=== PATIENT | male | born 1995 | race African-American/Black ===

== ENCOUNTER 2018-11-10 18:52 | Observation (INO) | payer OTHER, BC ==
[2018-11-10] MEDS ORDERED: KETOROLAC 30 MG/ML 1 ML VIAL IVP STA (19:57)
[2018-11-10] MEDS ORDERED: SODIUM CHLORIDE 0.9% 1,000 ML IV STA ×2 (19:57→23:05)
[2018-11-10] MEDS ORDERED: LORazepam 2 MG/ML INJ IV STA (19:57)
[2018-11-10 20:16] LABS: Basophils % (A) 0 %; Eosinophils % (A) 0 %; HCT 48.2 % (39.0-53.0); HGB 16.7 gm/dL (13.0-17.5); Lymphocytes % (A) 8 %; MCH 30.7 pg (25.0-35.0); MCHC 34.7 g/dL (31.0-37.0); MCV 88.6 fL (80.0-100.0); Mean Platelet Volume 6.1; Monocytes # (A) 0.5 k/uL (0-1.0); Monocytes % (A) 4 %; Neutrophils # (A) 11.1 k/uL (1.3-7.7); Neutrophils % (A) 87 %; Platelet Count 357 k/uL (150-450); RBC 5.44 m/uL (4.30-5.90); WBC 12.8 k/uL (3.8-10.6)
[2018-11-10 20:25] LABS: ALT 40 U/L (21-72); AST 48 U/L (17-59); Albumin 5.6 g/dL (3.5-5.0); Alkaline Phosphatase 61 U/L (38-126); Amylase 129 U/L (30-110); Anion Gap 16 mmol/L; Blood Urea Nitrogen 23 mg/dL (9-20); Calcium 10.8 mg/dL (8.4-10.2); Carbon Dioxide 23 mmol/L (22-30); Chloride 105 mmol/L (98-107); Glucose 106 mg/dL (74-99); Lipase 57 U/L (23-300); Potassium 4.2 mmol/L (3.5-5.1); Sodium 144 mmol/L (137-145); Total Bilirubin 1.2 mg/dL (0.2-1.3); Total Protein 8.7 g/dL (6.3-8.2)
--- NOTE | 2018-11-10 20:44 | CT ---
EXAMINATION TYPE: CT abdomen pelvis w con DATE OF EXAM: 11/10/2018 COMPARISON: None HISTORY: abdominal pain CT DLP: 440.5 mGycm Automated exposure control for dose reduction was used. TECHNIQUE: Helical acquisition of images was performed from the lung bases through the pelvis. CONTRAST: Performed without Oral Contrast and with IV Contrast, patient injected with 100 mL of Isovue 370. FINDINGS: Lung bases are clear. There is no pleural effusion. Heart size is normal. Liver spleen pancreas gallbladder appear normal. Bile ducts are not dilated. There is no adrenal mass. Kidneys show satisfactory contrast opacification. There is no hydronephrosi s. Ureters are not dilated. Bladder distends smoothly. There are a few prostatic calcifications. Ther e is no inguinal hernia. There is no free fluid in the pelvis. There is no sign of a bowel obstructio n. There is no sign of free air. There is no ascites. There is no mesenteric edema. The lumbar spine is intact. Bony pelvis is intact. Appendix is not seen. There is no sign of a thickened appendix. IMPRESSION: NEGATIVE CT SCAN OF THE ABDOMEN AND PELVIS. NO RENAL STONE OR OBSTRUCTION. NO SIGN OF APPENDICITIS.
[2018-11-10 21:24] LABS: Appearance,Urine Clear (Clear); Bilirubin,Urine Negative (Negative); Blood,Urine Negative (Negative); Color,Urine Yellow; Glucose,Urine (UA) Negative (Negative); Ketones,Urine 4+ (Negative); Leukocyte Esterase,Urine Negative (Negative); Nitrite,Urine Negative (Negative); PH, Urine 7.5 (5.0-8.0); Protein,Urine Trace (Negative); Urobilinogen,Urine <2.0 mg/dL (<2.0)
[2018-11-10 21:43] LABS: Specific Gravity,Urine >1.050 (1.001-1.035)
--- NOTE | 2018-11-10 22:06 | ED ---
General Adult HPI - General Source: patient Mode of arrival: ambulatory Limitations: no limitations <Agapito Jean - Last Filed: 11/10/18 22:04> - General Source: patient, RN notes reviewed Limitations: no limitations <Jax Mistry - Last Filed: 11/10/18 23:09> - General Chief complaint: Abdominal Pain Stated complaint: abdominal pain, vomiting Time Seen by Provider: 11/10/18 19:23 - History of Present Illness Initial comments: 22-year-old male presents to the emergency department for a chief complaint of vomiting 12 hours. Patient states he woke up this morning and has vomited about 20 times since. He states his significant generalized abdominal pain as well that he describes as a sharp cramping pain. Patient denies diarrhea. He states he was at a bowel movement yesterday. Patient denies any surgical history. He does admit that he was drinking alcohol last night but did not think he drink enough to cause this pain or vomiting. Patient has no other complaints at this time including shortness of breath, chest pain, headache, or visual changes. (Jax Mistry) - Related Data Home Medications Medication Instructions Recorded Confirmed No Known Home Medications 11/10/18 11/10/18 Allergies Allergy/AdvReac Type Severity Reaction Status Date / Time No Known Allergies Allergy Verified 11/10/18 19:36 Review of Systems ROS Other: All systems not noted in ROS Statement are negative. <Agapito Jean - Last Filed: 11/10/18 22:04> ROS Other: All systems not noted in ROS Statement are negative. <Jax Mistry - Last Filed: 11/10/18 23:09> ROS Statement: Those systems with pertinent positive or pertinent negative responses have been documented in the HPI. Past Medical History Past Medical History: No Reported History History of Any Multi-Drug Resistant Organisms: None Reported Past Surgical History: No Surgical Hx Reported Past Psychological History: No Psychological Hx Reported, Anxiety, Bipolar, Depression, PTSD Smoking Status: Current every day smoker Past Alcohol Use History: Occasional Past Drug Use History: Marijuana <Agapito Jean - Last Filed: 11/10/18 22:04> General Exam Limitations: no limitations <Agapito Jean - Last Filed: 11/10/18 22:04> Limitations: no limitations General appearance: in distress (Patient does appear in pain) Head exam: Present: atraumatic, normocephalic, normal inspection Eye exam: Present: normal appearance, PERRL, EOMI. Absent: scleral icterus, conjunctival injection, periorbital swelling ENT exam: Present: normal exam, mucous membranes moist Neck exam: Present: normal inspection, full ROM. Absent: tenderness, meningismus, lymphadenopathy Respiratory exam: Present: normal lung sounds bilaterally. Absent: respiratory distress, wheezes, rales, rhonchi, stridor Cardiovascular Exam: Present: regular rate, normal rhythm, normal heart sounds. Absent: systolic murmur, diastolic murmur, rubs, gallop, clicks GI/Abdominal exam: Present: tenderness, normal bowel sounds. Absent: soft ( voluntary guarding noted), distended, guarding, rebound Neurological exam: Present: alert, oriented X3, CN II-XII intact <Jax Mistry P - Last Filed: 11/10/18 23:09> Vital Signs 11/10/18 11/10/18 11/10/18 18:57 21:11 21:59 Temperature 97.9 F Pulse Rate 81 79 58 L Respiratory 22 16 16 Rate Blood Pressure 134/79 88/54 112/62 O2 Sat by Pulse 96 100 100 Oximetry Medical Decision Making - Lab Data Result diagrams: 11/10/18 20:03 11/10/18 20:03 <Agapito Jean - Last Filed: 11/10/18 22:04> - Lab Data Result diagrams: 11/10/18 20:03 11/10/18 20:03 <Jax Mistry - Last Filed: 11/10/18 23:09> - Medical Decision Making Medical decision making; this is a 22-year-old male who presents emergency room with abdominal pain. Started this morning. Patient reports a came on rather suddenly. He does admit having had a lot of alcohol last night. The patient's examination found the abdomen to be tender with voluntary guarding. The patient 's white count 12.5 hemoglobin amylase 126 lipase normal. CAT scan was done and reviewed by radiologist as no acute findings could be found by the radiologist stated he was unable to see the appendix but there was not any evidence of any localized inflammatory markers in that general area per radiology. I examine the patient is mildly tender with voluntary guarding. He has vomited several times bilious material. Patient will be hydrated. I discussed the case with on-call general surgeon Dr. Edwards. He'll see the patient in hospital. I discussed the case with milagro on-call for Dr. Mendez. Dr. Jean (Agapito Jean) 22-year-old male presents for abdominal pain with nausea and vomiting 12 hours. On exam patient does have abdomen with voluntary guarding noted as well as tenderness that is generalized throughout the abdomen. CBC unremarkable, patient does have a mild white count of 12 which is likely reactive. Amylase slightly elevated at 129. Patient does have 4+ ketones in the urine with a BUN of 23, given 2 L of fluids. Patient given Toradol, feeling much better at this time. Patient asking for food, patient was given juice. After few minutes patient vomited up juice and had recurrence of pain. Failed by mouth trial. Due to tenderness of abdomen CT was ordered which was negative for acute process. At this time given patient's elevated amylase as well as evidence of dehydration he will be admitted for intractable nausea and vomiting as well as abdominal pain possibly related to a very mild pancreatitis. (Jax Mistry) - Lab Data Lab Results 11/10/18 11/10/18 11/10/18 Range/Units 20:03 20:03 20:13 WBC 12.8 H (3.8-10.6) k/uL RBC 5.44 (4.30-5.90) m/uL Hgb 16.7 (13.0-17.5) gm/dL Hct 48.2 (39.0-53.0) % MCV 88.6 (80.0-100.0) fL MCH 30.7 (25.0-35.0) pg MCHC 34.7 (31.0-37.0) g/dL RDW 12.0 (11.5-15.5) % Plt Count 357 (150-450) k/uL Neutrophils % 87 % Lymphocytes % 8 % Monocytes % 4 % Eosinophils % 0 % Basophils % 0 % Neutrophils # 11.1 H (1.3-7.7) k/uL Lymphocytes # 1.0 (1.0-4.8) k/uL Monocytes # 0.5 (0-1.0) k/uL Eosinophils # 0.0 (0-0.7) k/uL Basophils # 0.0 (0-0.2) k/uL Sodium 144 (137-145) mmol/L Potassium 4.2 (3.5-5.1) mmol/L Chloride 105 (98-107) mmol/L Carbon Dioxide 23 (22-30) mmol/L Anion Gap 16 mmol/L BUN 23 H (9-20) mg/dL Creatinine 0.81 (0.66-1.25) mg/dL Est GFR (CKD-EPI)AfAm >90 (>60 ml/min/1.73 sqM) Est GFR (CKD-EPI)NonAf >90 (>60 ml/min/1.73 sqM) Glucose 106 H (74-99) mg/dL Calcium 10.8 H (8.4-10.2) mg/dL Total Bilirubin 1.2 (0.2-1.3) mg/dL AST 48 (17-59) U/L ALT 40 (21-72) U/L Alkaline Phosphatase 61 (38-126) U/L Total Protein 8.7 H (6.3-8.2) g/dL Albumin 5.6 H (3.5-5.0) g/dL Amylase 129 H (30-110) U/L Lipase 57 (23-300) U/L Urine Color Urine Appearance (Clear) Urine pH (5.0-8.0) Ur Specific [place] (1.001-1.035) Urine Protein (Negative) Urine Glucose (UA) (Negative) Urine Ketones (Negative) Urine Blood (Negative) Urine Nitrite (Negative) Urine Bilirubin (Negative) Urine Urobilinogen (<2.0) mg/dL Ur Leukocyte Esterase (Negative) Influenza Type A RNA Not Detected (Not Detectd) Influenza Type B (PCR) Not Detected (Not Detectd) 11/10/18 Range/Units 21:13 WBC (3.8-10.6) k/uL RBC (4.30-5.90) m/uL Hgb (13.0-17.5) gm/dL Hct (39.0-53.0) % MCV (80.0-100.0) fL MCH (25.0-35.0) pg MCHC (31.0-37.0) g/dL RDW (11.5-15.5) % Plt Count (150-450) k/uL Neutrophils % % Lymphocytes % % Monocytes % % Eosinophils % % Basophils % % Neutrophils # (1.3-7.7) k/uL Lymphocytes # (1.0-4.8) k/uL Monocytes # (0-1.0) k/uL Eosinophils # (0-0.7) k/uL Basophils # (0-0.2) k/uL Sodium (137-145) mmol/L Potassium (3.5-5.1) mmol/L Chloride (98-107) mmol/L Carbon Dioxide (22-30) mmol/L Anion Gap mmol/L BUN (9-20) mg/dL Creatinine (0.66-1.25) mg/dL Est GFR (CKD-EPI)AfAm (>60 ml/min/1.73 sqM) Est GFR (CKD-EPI)NonAf (>60 ml/min/1.73 sqM) Glucose (74-99) mg/dL Calcium (8.4-10.2) mg/dL Total Bilirubin (0.2-1.3) mg/dL AST (17-59) U/L ALT (21-72) U/L Alkaline Phosphatase (38-126) U/L Total Protein (6.3-8.2) g/dL Albumin (3.5-5.0) g/dL Amylase (30-110) U/L Lipase (23-300) U/L Urine Color Yellow Urine Appearance Clear (Clear) Urine pH 7.5 (5.0-8.0) Ur Specific [place] >1.050 H (1.001-1.035) Urine Protein Trace H (Negative) Urine Glucose (UA) Negative (Negative) Urine Ketones 4+ H (Negative) Urine Blood Negative (Negative) Urine Nitrite Negative (Negative) Urine Bilirubin Negative (Negative) Urine Urobilinogen <2.0 (<2.0) mg/dL Ur Leukocyte Esterase Negative (Negative) Influenza Type A RNA (Not Detectd) Influenza Type B (PCR) (Not Detectd) Disposition <Agapito Jean - Last Filed: 11/10/18 22:04> Is patient prescribed a controlled substance at d/c from ED?: No Time of Disposition: 22:29 <Jax Mistry - Last Filed: 11/10/18 23:09> Clinical Impression: Pancreatitis, Intractable nausea and vomiting, Abdominal pain Disposition: ADMITTED IP TO THIS HOSP Condition: Fair
[2018-11-10] MEDS ORDERED: KETOROLAC 30 MG/ML 1 ML VIAL IVP PRN (22:25)
[2018-11-10] MEDS ORDERED: MORPHINE SULFATE 4 MG/ML SYRINGE IV PRN (22:25)
[2018-11-10] MEDS ORDERED: NALOXONE 0.4 MG/ML 1 ML VIAL IV PRN (22:25)
[2018-11-10] MEDS ORDERED: ONDANSETRON 4 MG/2 ML VIAL IVP PRN (22:25)
[2018-11-10] MEDS ORDERED: METOCLOPRAMIDE 5 MG/ML 2 ML VIAL IVP STA (23:28)
[2018-11-11] MEDS: SODIUM CHLORIDE 0.9% 1,000 ML IV SCH ×2 (00:25→04:46)
[2018-11-11 15:26] VITALS: BP 102/64; PULSE 79; RESP 18; TEMP 98.4
--- NOTE | 2018-11-11 15:32 | P.HPIM ---
History of Present Illness This is a pleasant 22 years old male with no significant past medical history presents with persistent nausea vomiting. Patient has 3 drinks of fourth 2 beers with his friends couple nights ago, and since yesterday he has repeated nausea vomiting several times about 10-15 times, she presents with severe abdominal pain came in the lower abdomen, as sharp and crampy. However today patient got some fluids, and pain medication and today he feels better with no more nausea vomiting. The abdominal pain has subsided. However patient hasn't been trying to eat or drink anything since morning. We will advance the diet and see how is doing Patient's vitals are stable, he has mild leukocytosis., Liver enzymes were within normal limits. Influenza B was checked was negative. Urine analysis is negative for infection however it looks concentrated with ketones positive. He has CT of the abdomen and pelvis with contrast showing no acute abnormalities. He was kept nothing by mouth, on IV fluids and pain management. 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 History of Any Multi-Drug Resistant Organisms: None Reported Past Surgical History: No Surgical Hx Reported Additional Past Surgical History / Comment(s): wisdom teeth removal Smoking Status: Current every day smoker - Past Family History Mother Family Medical History: No Reported History Father Family Medical History: No Reported History Medications and Allergies Home Medications Medication Instructions Recorded Confirmed Type No Known Home Medications 11/10/18 11/11/18 History Allergies Allergy/AdvReac Type Severity Reaction Status Date / Time No Known Allergies Allergy Verified 11/11/18 00:27 Physical Exam Vitals: Vital Signs Temp Pulse Pulse Resp BP BP Pulse Ox 11/11/18 08:00 98.5 F 76 16 104/51 98 11/11/18 03:12 16 11/11/18 00:55 16 11/11/18 00:46 98.8 F 102 H 16 108/58 99 11/10/18 23:51 78 18 111/96 99 11/10/18 21:59 58 L 16 112/62 100 11/10/18 21:11 79 16 88/54 100 11/10/18 18:57 97.9 F 81 22 134/79 96 Results CBC & Chem 7: 11/10/18 20:03 02/20/19 20:03 Labs: Abnormal Lab Results - Last 24 Hours (Table) 11/10/18 11/10/18 11/10/18 Range/Units 20:03 20:03 21:13 WBC 12.8 H (3.8-10.6) k/uL Neutrophils # 11.1 H (1.3-7.7) k/uL BUN 23 H (9-20) mg/dL Glucose 106 H (74-99) mg/dL Calcium 10.8 H (8.4-10.2) mg/dL Total Protein 8.7 H (6.3-8.2) g/dL Albumin 5.6 H (3.5-5.0) g/dL Amylase 129 H (30-110) U/L Ur Specific [place] >1.050 H (1.001-1.035) Urine Protein Trace H (Negative) Urine Ketones 4+ H (Negative) Assessment and Plan Assessment: Mostly patient has alcoholic gastroenteritis Dehydration Leukocytosis, mostly reactive Plan: This is a pleasant 22 years old male who presents with alcoholism and gastritis versus gastroenteritis. Patient nausea vomiting and dehydration are improving with IV fluid hydration, we'll continue the same and continue with pain management. We'll advance the diet to see how the patient will tolerated. Surgical team have been already consulted. DVT and GI prophylaxis. Further recommendations based on the clinical course of the patient.
--- NOTE | 2018-11-11 18:05 | P.DS ---
Providers Date of admission: 11/10/18 23:41 Attending physician: Michael Mendez Consults: 11/10/18 22:25 Consult Physician Stat Consulting Provider: Ray Troy Reason/Comments: pancreatitis, abdominal pain Do you want consulting provider notified?: Already Contacted Primary care physician: Stated None Hospital Course: This is a pleasant 22 years old male who comes with abdominal pain and nausea vomiting related to alcohol drinking of one-day duration. He was treated symptomatically with IV fluid normal saline and pain medication, and after his pain subsided his diet was advanced gradually he tolerated that well and he had bowel movement. Patient also has been evaluated by surgeon who cleared him for discharge. Patient symptoms resolved completely no more abdominal pain, no more nausea vomiting. He has normal bowel movements. Patient felt he can go home. Patient was found stable and can be discharged home however he needs follow-up as an outpatient. Patient was instructed to follow-up with his PCP in one week. He wasn't sure what was his PCP however he has [employer] insurance and he has his dad insurance, information is provided for the above the eye clinic as well as Dr. Guzmán otherwise patient states that he will find that with his family doctor in follow -up in one week Please refer to H&P from today for more details included physical exam. Time spent more than 35 minutes Patient Condition at Discharge: Fair Plan - Discharge Summary New Discharge Prescriptions: No Action No Known Home Medications Discharge Medication List No Known Home Medications 11/10/18 [History] Follow up Appointment(s)/Referral(s): Kaelyn Caldwell MD [REFERRING] - 1 Week None,Stated [Primary Care Provider] - 1-2 days [facility],Clinic [REFERRING] - 1 Week Activity/Diet/Wound Care/Special Instructions: regular diet activity as tolerated Discharge Disposition: HOME SELF-CARE
--- NOTE | 2018-11-11 18:18 | P.GSCN ---
History of Present Illness Consult date: 11/11/18 Reason for Consult: Abdominal pain History of present illness: The patient presents to the ER yesterday with a complaint of mid abdominal discomfort. He went on drinking with his friends on Thursday night. That evening he developed frequent vomiting. This persisted throughout yesterday morning and was associated with mid abdominal pain. No fevers. Normal bowel movement. No hematemesis or rectal bleeding. No melena. No history of similar events. Amylase was elevated on arrival. CAT scan was unimpressive however the patient has very little subcutaneous fat and the CAT scan was limited. Today the patient feels well. He is tolerating liquids at this time. He would like to go home. 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 History of Any Multi-Drug Resistant Organisms: None Reported Past Surgical History: No Surgical Hx Reported Additional Past Surgical History / Comment(s): wisdom teeth removal Smoking Status: Current every day smoker - Past Family History Mother Family Medical History: No Reported History Father Family Medical History: No Reported History Medications and Allergies Home Medications Medication Instructions Recorded Confirmed Type No Known Home Medications 11/10/18 11/11/18 History Allergies Allergy/AdvReac Type Severity Reaction Status Date / Time No Known Allergies Allergy Verified 11/11/18 00:27 Surgical - Exam Vital Signs Temp Pulse Resp BP Pulse Ox 97.9 F 81 22 134/79 96 11/10/18 18:57 11/10/18 18:57 11/10/18 18:57 11/10/18 18:57 11/10/18 18:57 Physical exam: General: Well-developed, well-nourished HEENT: Normocephalic, sclerae nonicteric Abdomen: Nontender, nondistended Extremities: No edema Neuro: Alert and oriented Results - Labs 11/10/18 20:03 11/10/18 20:03 Abnormal Lab Results - Last 24 Hours (Table) 11/10/18 11/10/18 11/10/18 Range/Units 20:03 20:03 21:13 WBC 12.8 H (3.8-10.6) k/uL Neutrophils # 11.1 H (1.3-7.7) k/uL BUN 23 H (9-20) mg/dL Glucose 106 H (74-99) mg/dL Calcium 10.8 H (8.4-10.2) mg/dL Total Protein 8.7 H (6.3-8.2) g/dL Albumin 5.6 H (3.5-5.0) g/dL Amylase 129 H (30-110) U/L Ur Specific [place] >1.050 H (1.001-1.035) Urine Protein Trace H (Negative) Urine Ketones 4+ H (Negative) Diabetes panel 11/10/18 Range/Units 20:03 Sodium 144 (137-145) mmol/L Potassium 4.2 (3.5-5.1) mmol/L Chloride 105 (98-107) mmol/L Carbon Dioxide 23 (22-30) mmol/L BUN 23 H (9-20) mg/dL Creatinine 0.81 (0.66-1.25) mg/dL Glucose 106 H (74-99) mg/dL Calcium 10.8 H (8.4-10.2) mg/dL AST 48 (17-59) U/L ALT 40 (21-72) U/L Alkaline Phosphatase 61 (38-126) U/L Total Protein 8.7 H (6.3-8.2) g/dL Albumin 5.6 H (3.5-5.0) g/dL Calcium panel 11/10/18 Range/Units 20:03 Calcium 10.8 H (8.4-10.2) mg/dL Albumin 5.6 H (3.5-5.0) g/dL Pituitary panel 11/10/18 Range/Units 20:03 Sodium 144 (137-145) mmol/L Potassium 4.2 (3.5-5.1) mmol/L Chloride 105 (98-107) mmol/L Carbon Dioxide 23 (22-30) mmol/L BUN 23 H (9-20) mg/dL Creatinine 0.81 (0.66-1.25) mg/dL Glucose 106 H (74-99) mg/dL Calcium 10.8 H (8.4-10.2) mg/dL Adrenal panel 11/10/18 Range/Units 20:03 Sodium 144 (137-145) mmol/L Potassium 4.2 (3.5-5.1) mmol/L Chloride 105 (98-107) mmol/L Carbon Dioxide 23 (22-30) mmol/L BUN 23 H (9-20) mg/dL Creatinine 0.81 (0.66-1.25) mg/dL Glucose 106 H (74-99) mg/dL Calcium 10.8 H (8.4-10.2) mg/dL Total Bilirubin 1.2 (0.2-1.3) mg/dL AST 48 (17-59) U/L ALT 40 (21-72) U/L Alkaline Phosphatase 61 (38-126) U/L Total Protein 8.7 H (6.3-8.2) g/dL Albumin 5.6 H (3.5-5.0) g/dL Assessment and Plan (1) Abdominal pain Narrative/Plan: Patient with 24-hour episode of nausea vomiting and abdominal pain. The symptoms have resolved. I am not convinced this was necessarily pancreatitis. This very well could have been a viral illness. Stable for discharge however. Follow-up as needed. Current Visit: Yes Status: Acute Code(s): R10.9 - UNSPECIFIED ABDOMINAL PAIN SNOMED Code(s): 24878385
== END 2018-11-11 18:17 | disposition home or self-care (01) ==
LOC: EC 18:52 → 1SOBS 23:41
PROVIDERS: ADMIT Hospitalist; ATTEND Hospitalist
DX: R10.84 Generalized abdominal pain (principal); R10.30 Lower abdominal pain, unspecified; R11.2 Nausea with vomiting, unspecified; F10.20 Alcohol dependence, uncomplicated; E86.0 Dehydration; R74.8 Abnormal levels of other serum enzymes; D72.829 Elevated white blood cell count, unspecified; F17.200 Nicotine dependence, unspecified, uncomplicated
CPT/HCPCS: 96361; 96374; 96375; 99285; 36415; 80053; 82150; 83690; 85025; 81003; 87502; 74177; G0378 ×2; J2060; J2270; J2765; J1885; Q9967